=== PATIENT | male | born 2000 | race African-American/Black ===

== ENCOUNTER 2024-11-06 15:03 | Emergency (ER) | payer SELFPAY ==
[~2024-11-06] VITALS: Ht 188 cm; Wt 182.0 kg
[2024-11-06 15:23] VITALS: O2SAT 98
[2024-11-06] MEDS ORDERED: LIDO-53 TP (17:10)
[2024-11-06] MEDS ORDERED: GABA-529 MT (17:10)
[2024-11-06 17:43] VITALS: BP 148/94; PULSE 88; RESP 18; TEMP 36.6; O2SAT 98
== END 2024-11-06 17:44 | disposition home or self-care (01) ==
LOC: ER 15:03
DX: M79.604 Pain in right leg (principal)
CPT/HCPCS: 99283